=== PATIENT | male | born 1965 ===

== ENCOUNTER 2020-03-10 10:23 | Observation (INO) ==
[2020-03-10] MEDS ORDERED: NS 0.9% 1000 ml BAG 1,000 ML IV ONE ×3 (11:03→13:24)
[2020-03-10] MEDS ORDERED: Al Hydrox/Mg Hydrox/Simet LIQ 30 ML UDC PO ONE ×2 (11:03)
[2020-03-10 11:27] LABS: ABS Lymphocytes 0.8 10^3/ul (1.0-4.8); ABS Monocytes 0.7 10^3/ul (0-0.8); Eosinophil % 0.1 %; Hematocrit 44 % (42-52); Hemoglobin 15.5 g/dL (14.0-18.0); Lymphocyte % 7.3 %; Mean Corpuscular HGB Conc 35 g/dL (31-36); Mean Corpuscular Hemoglobin 32 pg (27-31); Mean Corpuscular Volume 90 fL (80-94); Mean Platelet Volume 8.6 fL (7.4-10.4); Platelet Count 145 10^3/uL (150-450); Red Blood Count 4.86 10^6 /uL (4.18-5.48); Red Cell Distribution Width 14 % (10-15); White Blood Count 11.2 10^3/uL (3.5-10.8)
[2020-03-10 12:17] LABS: Albumin 4.3 g/dL (3.2-5.2); Albumin/Globulin Ratio 1.6 (1-3); BUN/Creatinine Ratio 12.6 (8-20); C Reactive Protein 1.9 mg/L (<8.01); Calcium 9.8 mg/dL (8.6-10.3); EGFR African American 82.9 (>60); EGFR Non-African American 68.5 (>60); Globulin 2.7 g/dL (2-4); Potassium 4.4 mmol/L (3.5-5.0); Total Bilirubin 2.3 mg/dL (0.2-1.0)
[2020-03-10 12:40] LABS: INR 1.03 (0.82-1.09)
[2020-03-10] MEDS ORDERED: Iohexol 300 (CONTRAST) 10 ML SDV IV ONE (13:52)
[2020-03-10] MEDS ORDERED: Morphine 2 MG/ML SYRINGE IV ONE (14:22)
[2020-03-10] MEDS ORDERED: Ondansetron 4 mg VIAL 2 MG/ML 2 ml VIAL IV PRN (14:22)
[2020-03-10 14:44] LABS: HDL Cholesterol 41.3 mg/dL
[2020-03-10] MEDS ORDERED: Pantoprazole VIAL 40 MG VIAL IV ONE (15:00)
[2020-03-10] MEDS: Lactated Ringers 1000 ml BAG 1,000 ML IV SCH ×2 (15:49→22:25)
[2020-03-10] MEDS: Pantoprazole VIAL 40 MG VIAL IV SCH (15:49)
[2020-03-10] MEDS: Morphine 2 MG/ML SYRINGE IV PRN (19:59)
[2020-03-10] MEDS ORDERED: Enoxaparin 40 MG/0.4 ML SYR(*) SUBCUT ONE (20:00)
[2020-03-10] MEDS ORDERED: Enoxaparin 40 MG/0.4 ML SYR(*) SUBCUT SCH (20:00)
[2020-03-11] MEDS: Morphine 2 MG/ML SYRINGE IV PRN (02:20)
[2020-03-11] MEDS: Lactated Ringers 1000 ml BAG 1,000 ML IV SCH (05:07)
[2020-03-11 07:56] LABS: Albumin 3.6 g/dL (3.2-5.2); Albumin/Globulin Ratio 1.4 (1-3); BUN/Creatinine Ratio 14.4 (8-20); Calcium 8.4 mg/dL (8.6-10.3); EGFR African American 96.9 (>60); EGFR Non-African American 80.1 (>60); Globulin 2.5 g/dL (2-4); Indirect Bilirubin 1.5 mg/dL (0.3-1.0); Potassium 3.9 mmol/L (3.5-5.0); Total Bilirubin 1.8 mg/dL (0.2-1.0); Total Protein 6.1 g/dL (6.4-8.9)
[2020-03-11] MEDS ORDERED: Aspirin EC 81 mg TAB.EC (enteric coated) PO SCH (09:00)
[2020-03-11] MEDS ORDERED: Aspirin EC 81 mg TAB.EC (enteric coated) PO ONE (09:00)
[2020-03-11 09:03] LABS: ABS Lymphocytes 1.2 10^3/ul (1.0-4.8); ABS Monocytes 0.7 10^3/ul (0-0.8); Hematocrit 44 % (42-52); Lymphocyte % 9.9 %; Mean Corpuscular HGB Conc 34 g/dL (31-36); Mean Corpuscular Hemoglobin 31 pg (27-31); Mean Corpuscular Volume 92 fL (80-94); Mean Platelet Volume 9.2 fL (7.4-10.4); Nucleated Red Blood Cells % 0.1; Platelet Count 144 10^3/uL (150-450); Red Blood Count 4.81 10^6 /uL (4.18-5.48); Red Cell Distribution Width 14 % (10-15); White Blood Count 11.9 10^3/uL (3.5-10.8)
[2020-03-11] MEDS: Pantoprazole VIAL 40 MG VIAL IV SCH (09:17)
[2020-03-11 09:18] LABS: TSH (Thyroid Stimulating Horm) 1.51 mcIU/mL (0.34-5.60)
[2020-03-11 12:29] VITALS: BP 148/77
== END 2020-03-11 13:15 | disposition home or self-care (01) ==
LOC: ED 10:23 → MED 10:23
PROVIDERS: ADMIT Internal Medicine; ATTEND Internal Medicine